=== PATIENT | male | born 1965 | race Caucasian/White ===

== ENCOUNTER 2018-05-25 11:01 | Outpatient (CLI) | payer OTHER ==
[~2018-05-25 11:01] MED LIST: ISOVUE-370 76%-LOCM 1 ML ONE
--- NOTE | 2018-05-25 14:14 | CT ---
CT OF ABDOMEN AND PELVIS PERFORMED WITH CONTRAST ENHANCEMENT: HISTORY: Epigastric pain for the past 2 months. FINDINGS: The lung bases are clear of infiltrates. The liver, spleen, pancreas, and gallbladder regions are unremarkable. Right and left adrenal glands and right and left kidneys are normal in There is size. There is no significant periaortic or mesenteric adenopathy. There is a mild amount of stool throughout the colo n. CT OF PELVIS PERFORMED WITH CONTRAST ENHANCEMENT: It is difficult to definitively identify an appendix. Although I do not see any definite inflammator y change in this region, there is a lack of intraabdominal fat which does degrade detail. No pelvic lymphadenopathy or mass. IMPRESSION: No acute abnormalities of the abdomen or pelvis. POS: [facility]
== END 2018-05-25 11:02 | disposition home or self-care (01) ==
LOC: BICCT 11:01
PROVIDERS: ATTEND Internal Medicine Gastroenterology
DX: Z12.11 Encounter for screening for malignant neoplasm of colon (principal); R10.13 Epigastric pain
CPT/HCPCS: 74177

== ENCOUNTER 2018-06-13 07:36 | Outpatient (CLI) | payer OTHER ==
--- NOTE | 2018-06-13 08:47 | ULT ---
GALLBLADDER ULTRASOUND: INDICATIONS: Epigastric pain. FINDINGS: No focal hepatic lesion or acute gallbladder pathology. The common duct is normal, measuring 3 mm in diameter. No ascites. IMPRESSION: No acute gallbladder pathology. POS: [facility]
== END 2018-06-13 07:37 | disposition home or self-care (01) ==
LOC: BICULT 07:36
PROVIDERS: ATTEND Internal Medicine Gastroenterology
DX: R10.13 Epigastric pain (principal)
CPT/HCPCS: 76705

== ENCOUNTER 2018-09-03 17:25 | Day surgery (SDC) | payer OTHER ==
[2018-09-03 18:02] LABS: Hemoglobin 14.9 g/dL (14.0-18.0); Mean Corpuscular HGB CONC 33.6 g/dL (32.0-36.0); Mean Corpuscular Hemoglobin 30.8 pg (27.0-31.0); Mean Corpuscular Volume 91.6 fL (78.0-98.0); Platelet Count 147 thou/uL (130-400); RBC Distribution Width 11.9 % (11.5-14.5); Red Blood Cell (RBC) Count 4.85 mill/uL (4.70-6.10); White Blood Cell (WBC) Count 6.6 thou/uL (4.8-10.8)
--- NOTE | 2018-09-03 18:03 | RAD ---
EXAM: Single view of the chest HISTORY: Right chest pain COMPARISON: None FINDINGS: Single view of the chest shows a normal sized cardiomediastinal silhouette. There is no araceli dence of consolidation, mass, or pleural effusion. The bones are unremarkable. IMPRESSION: No evidence of acute cardiopulmonary disease
[2018-09-03 18:19] LABS: ALT (SGPT) 40 U/L (8-55); AST (SGOT) 40 U/L (5-34); Albumin 4.4 g/dL (3.5-5.0); Alkaline Phosphatase 64 U/L (40-150); Anion Gap 15 mmol/L (10-20); BUN (Urea Nitrogen) 17 mg/dL (8.4-25.7); Bilirubin, Total 2.9 mg/dL (0.2-1.2); Calc. Creatinine Clearance 0 mL/min (70-130); Calcium 9.6 mg/dL (7.8-10.44); Carbon Dioxide 23 mmol/L (22-29); Chloride 100 mmol/L (98-107); Estimated GFR-MDRD 58; Globulin 2.6 g/dL (2.4-3.5); Glucose 106 mg/dL (70-105); Potassium 3.4 mmol/L (3.5-5.1); Sodium 135 mmol/L (136-145)
[2018-09-03 18:32] LABS: CK (CPK) 87 U/L (30-200); Lipase 37 U/L (8-78)
[2018-09-03 18:34] LABS: Band 11 % (5-11); Lymphocytes 4 % (21-51); MDiff Complete? YES; Monocytes 3 % (0-10); Neutrophil 82 % (42-75); Platelet Morphology Comment Appears Adequate
[2018-09-03] MEDS ORDERED: Fentanyl 100 MCG/2 ML VIAL ONE ×3 (18:55→21:50)
[2018-09-03] MEDS ORDERED: Ondansetron PF 4 MG/2 ML Vial ONE (18:55)
--- NOTE | 2018-09-03 18:58 | CT ---
CT Abdomen Pelvis W Con: 09/03/2018 6:06 PM CLINICAL INFORMATION: Lower abdominal pain that's getting progressively worse COMPARISON: 05/25/2018 TECHNIQUE: Multiple contiguous axial images were obtained and a CT of the abdomen and pelvis with IV contrast. Oral contrast was administered. Coronal reformats were performed. FINDINGS: Lower Chest: within normal limits. Abdomen: Liver: within normal limits. Bile Ducts: Normal caliber. Gallbladder: No calcified gallstones. Normal caliber wall. Pancreas: within normal limits. Spleen: within normal limits. Adrenals: within normal limits. Kidneys: within normal limits. Pelvis: Reproductive Organs: No pelvic masses. Ureters: within normal limits. Bladder: within normal limits. Peritoneum: No ascites or free air, no fluid collection. Bowel: Normal caliber large and small bowel. The appendix is enlarged in size measuring 10 mm but con tains air. There are questionable stranding changes adjacent to the appendix. Mesentery and Retroperitoneum: No enlarged mesenteric or retroperitoneal lymph nodes. Vessels: Normal. Abdominal Wall: within normal limits. Bones: Within normal limits IMPRESSION: Findings are equivocal for the appendix. This could represent early acute appendicitis. Correlate wit h white blood cell count and right lower quadrant abdominal tenderness.
[2018-09-03] MEDS ORDERED: Piperacillin/Tazobactam 4.5 GM VIAL ONE (19:06)
[2018-09-03 19:14] LABS: Bilirubin Negative (Negative); Blood, Urine Negative (Negative); Clarity CLEAR (Clear); Glucose, Urine (Dipstick) Negative (Negative); Leukocyte Trace (Negative); Nitrite Negative (Negative); Protein, Urine (Dipstick) Negative (Neg-Trace); Specific Gravity, Urine 1.025 (1.002-1.036)
[2018-09-03 19:17] LABS: Bacteria/HPF None Seen HPF (None Seen); Hyaline Casts/LPF 0-3 HYALINE CAST LPF (0-3 Hyaline); RBC/HPF 0-3 HPF (0-3); Squamous Epithelial 0-3 HPF (0-3); WBC/HPF 0-3 HPF (0-3)
[2018-09-03 19:21] LABS: INR-International Normal Ratio 1.1; PTT 26.8 SEC (22.9-36.1); Prothrombin Time 14.5 SEC (12.0-14.7)
[2018-09-03] MEDS ORDERED: Bupivacaine/Epinephrine 0.25% 30 ML VIAL ONE (20:20)
[2018-09-03] MEDS ORDERED: Lidocaine 2% Jelly 5 ML TUBE ONE (20:21)
[2018-09-03] MEDS ORDERED: Midazolam HCl 2 mg/2 ml Vial ONE (20:21)
[2018-09-03] MEDS ORDERED: HYDROcodone/Acetaminophen 5/325 mg Tablet ONE (22:16)
--- NOTE | 2018-09-04 02:40 | HP ---
CHIEF COMPLAINT: Right lower quadrant pain. HISTORY OF PRESENT ILLNESS: This is a 52-year-old male with a history of pain in his right lower quadrant since last night, started off mild, more of an ache, became more localized to the right lower quadrant today. It is described as 8/10 and sharp, does not radiate, it is associated with nausea, but no vomiting, associated with bloating and anorexia. No change in stools. No dysuria. No fever or chills. No previous history of inflammatory bowel disease or Crohn disease. He has a history of upper epigastric pain that was chronic. He was found to have peptic ulcer that resolved with [id number] Prilosec. PAST MEDICAL HISTORY: Denies. PAST SURGICAL HISTORY: Colonoscopy and EGD. MEDICINES: None. ALLERGIES: NO KNOWN DRUG ALLERGIES. SOCIAL HISTORY: No smoking, alcohol, or other drugs. He is . REVIEW OF SYSTEMS: Ten-system review of systems is otherwise negative unless described above. PHYSICAL EXAMINATION: HEENT: Sclerae anicteric. Oropharynx clear. NECK: No lymphadenopathy. CHEST: Clear. HEART: Regular rate and rhythm. ABDOMEN: Soft, tender right lower quadrant. No localized guarding or rebound. No abdominal hernias. EXTREMITIES: No ischemia or edema to extremities. LABORATORY DATA: White blood cell count is 6, hemoglobin is 14. He has 11 bands. Creatinine 1.29, bilirubin is 2.9. ASSESSMENT: Right lower quadrant pain, clinical findings on CT scan and elevation of bilirubin to 2.9. PLAN: His story and exam are consistent with appendicitis. I am unsure the etiology of this elevation of his bilirubin. We will follow up with a postoperative ultrasound and repeat loud liver function tests. Job ID: [id number]
--- NOTE | 2018-09-04 04:13 | OP ---
DATE OF PROCEDURE: 09/03/2018 PREOPERATIVE DIAGNOSIS: Acute appendicitis. POSTOPERATIVE DIAGNOSIS: Acute appendicitis. PROCEDURE PERFORMED: Laparoscopic appendectomy. ANESTHESIA: General. ESTIMATED BLOOD LOSS: Minimal. COMPLICATIONS: None. SPECIMEN: Appendix. FINDINGS: Appendicitis. DESCRIPTION OF PROCEDURE: The patient was taken to the operating room and laid supine on the operating room table. After general anesthetic was obtained, a Eubanks was placed. The abdomen was shaved, prepped, and draped in sterile fashion. A curved incision was made below the umbilicus. Cautery was used to dissect down to and score the fascia. Abdominal cavity entered bluntly using a Jenn clamp. Holding stitch of PDS was placed on each side the fascia. Héctor trocar was placed. High-flow pneumoperitoneum was obtained. A suprapubic 5 mm port and left lower quadrant 5 mm port were placed under direct visualization. The cecum was rolled over to reveal acute appendicitis. A window was made at the base of the appendix and mesoappendix. Laparoscopic stapler was fired across the base of the appendix. A vascular reload was fired across the mesoappendix and the appendix was placed in an EndoCatch bag and brought out through the Héctor. There was no bleeding on the staple line. There was no injury to any intraabdominal structures. All port sites were infiltrated using local anesthetic. All ports were removed under camera visualization, pneumoperitoneum was let down. PDS was used to close the fascial defect below the umbilicus. All incisions were irrigated and closed using 4-0 Monocryl and Dermabond. The patient was sent to Recovery in stable condition. All instrument counts, needle counts, and lap counts were correct. Job ID: [id number]
== END 2018-09-03 22:42 | disposition home or self-care (01) ==
LOC: ERS 17:25 → SDC 19:20
PROVIDERS: ATTEND Surgery
PROC: 0DTJ4ZZ Resection of Appendix, Percutaneous Endoscopic Approach (ICD-10-PCS; principal; 2018-09-03)
DX: K35.33 Acute appendicitis with perforation, localized peritonitis, and gangrene, with abscess (principal); Z98.890 Other specified postprocedural states
CPT/HCPCS: 71045; 74177; 80053; 81003; 81015; 82550; 83605; 83690; 84484; 85025; 85610; 85730; 87040; 87149; 88304; 93005; J2250; J2405; J2543; J3010

== ENCOUNTER 2020-04-21 07:07 | Outpatient (CLI) | payer OTHER ==
--- NOTE | 2020-04-21 07:37 | ULT ---
Sonogram right upper quadrant HISTORY: Upper abdomen pain. FINDINGS: Gallbladder has a normal appearance without stones. Common duct is 0.4 cm. Liver has normal appearance without focal mass or intrahepatic biliary dilatation. No free fluid. Adjacent to the inferior margin of the left liver lobe, superior and anterior to the pancreatic head/ neck, a well-circumscribed homogeneous hypoechoic nonvascular mass is favored to be solid, containing low-level echoes. No mass was evident at this location on prior CT and ultrasound exams. IMPRESSION : Homogeneous solid mass within the upper anterior abdomen, apparently new, as it was not present on pr ior exams. Possibly an enlarged lymph node. Please consider dedicated CT abdomen, without and with IV contrast, for better characterization. Code T Transcribed Date/Time: 04/21/2020 7:51 AM
== END 2020-04-21 07:08 | disposition home or self-care (01) ==
LOC: BICULT 07:07
PROVIDERS: ATTEND Family Medicine
DX: R10.11 Right upper quadrant pain (principal); R19.01 Right upper quadrant abdominal swelling, mass and lump
CPT/HCPCS: 76705

== ENCOUNTER 2020-05-01 13:31 | Outpatient (CLI) | payer OTHER ==
[~2020-05-01 13:31] MED LIST changes: -ISOVUE-370 76%-LOCM 1 ML ONE; +Iopamidol 370 76% 100 ML VIAL ONE
--- NOTE | 2020-05-01 16:53 | CT ---
CT ABDOMEN WITH AND WITHOUT CONTRAST: 05/01/20 Postcontrast images were obtained in arterial phase and a portal venous phase. INDICATIONS: Follow-up gallbladder ultrasound exam 04/21/20 which described a solid mass along the inferior margins of the left lobe of the liver anteriorly. Comparison made to prior CT abdomen 09/03/18. FINDINGS: Lung bases are clear. Liver, spleen and pancreas appear unremarkable. There is a rounded soft tissue circumscribed nodular mass seen in the midline of the anterior abdomen . This abuts the posterior surface of the linea alba of the upper rectus musculature. This mass was p resent in 2019 although it was smaller. Maximal axial measurement at that time was 1.4 cm. Craniocaud al measurement today is 2.5 cm in the sagittal plane. This nodular mass has soft tissue characteristics. It does show Heterogeneous enhancement on the post contrast exam. It is well circumscribed. Liver, spleen, and pancreas unremarkable. Adrenal glands and kidneys unremarkable. Stomach unremarkable. The visualized small and large bowel unremarkable. Aorta normal caliber. Osseous structures unremarka ble. IMPRESSION: Rounded circumscribed soft tissue mass just posterior to the linea alba upper abdomen in the midline adjacent to the left lobe of the liver. This mass was present in 2019 but has enlarged with dimension s given above. It does show heterogeneous enhancement. Excision or biopsy is recommended to exclude n eoplasm. POS: [facility]
== END 2020-05-01 13:32 | disposition home or self-care (01) ==
LOC: BICCT 13:31
PROVIDERS: ATTEND Family Medicine
DX: R19.01 Right upper quadrant abdominal swelling, mass and lump (principal)
CPT/HCPCS: 74170; Q9967

== ENCOUNTER 2020-06-02 07:16 | Day surgery (SDC) | payer OTHER ==
[2020-06-01 12:09] VITALS: BMI 23.7
[2020-06-02] MEDS ORDERED: Bupivacaine 0.25% HCL 30 ML VIAL ONE (09:00)
[2020-06-02] MEDS ORDERED: Lidocaine 1% w/Epinephrine 1:100K 20 ML VIAL ONE (09:00)
[2020-06-02] MEDS ORDERED: Fentanyl 100 MCG/2 ML VIAL ONE (09:05)
[2020-06-02] MEDS ORDERED: Lidocaine 2% Jelly 5 ML TUBE ONE (09:05)
[2020-06-02] MEDS ORDERED: Dexamethasone 20 MG/5 ML VIAL ONE (09:37)
[2020-06-02] MEDS ORDERED: PROPOFOL 200 MG/20 ML VIAL ONE (09:37)
[2020-06-02] MEDS ORDERED: Ondansetron PF 4 MG/2 ML Vial ONE (09:37)
[2020-06-02] MEDS ORDERED: Ketorolac Tromethamine 30 MG/ML VIAL ONE (09:37)
[2020-06-02] MEDS ORDERED: Glycopyrrolate 0.2 MG/ML 5 ML SYRINGE ONE (09:37)
[2020-06-02] MEDS ORDERED: Rocuronium Bromide 10 MG/ML (10ML VIAL) ONE (09:37)
[2020-06-02] MEDS ORDERED: Lidocaine 1% PF 5 ML VIAL ONE (09:37)
[2020-06-02] MEDS ORDERED: HYDROcodone/Acetaminophen 5/325 mg Tablet ONE (11:04)
== END 2020-06-02 11:40 | disposition home or self-care (01) ==
LOC: SDC 07:16
PROVIDERS: ATTEND Surgery
PROC: 0WQF4ZZ Repair Abdominal Wall, Percutaneous Endoscopic Approach (ICD-10-PCS; principal; 2020-06-02)
DX: K43.9 Ventral hernia without obstruction or gangrene (principal)
CPT/HCPCS: 88304; J0690; J1100; J1885; J2405; J2704; J3010; S0020